=== PATIENT | female | born 1985 | race Caucasian/White ===

== ENCOUNTER 2016-07-12 14:48 | Emergency (ER) | payer OTHER ==
[~2016-07-12] VITALS: Ht 152.4 cm; Wt 66.0 kg
[2016-07-12 14:53] VITALS: Ht 152.4 cm; Wt 66.0 kg
[2016-07-12] MEDS ORDERED: KETOROLAC 30 MG INJ IM STA (16:16)
[2016-07-12] MEDS ORDERED: OXYCODONE/ACETAMINOPHEN (5/325) TAB PO ONE (16:30)
--- NOTE | 2016-07-12 16:44 | RADRPT ---
PROCEDURE: US Lower extremity Venous. CLINICAL INDICATION: Pain and swelling TECHNIQUE: Multiple sonographic images of the right lower extremity deep venous system was obtaine d utilizing grayscale, color-flow, compressive sonography and doppler imaging with augmentation. Th e images were reviewed on a PACS workstation. COMPARISON: None. FINDINGS: There is normal compressibility and flow within the right common femoral, deep femoral, superficial femoral and popliteal veins. Normal respiratory variation and augmentation is seen. There is normal color flow and compressibility of right posterior tibial and peroneal veins IMPRESSION: No sonographic evidence for right lower extremity deep venous thrombosis. RPTAT: HH .Hood Gonzalez MD, MD Date Time Electronically viewed and signed by .Hood Gonzalez MD, on 07/12/2016 16:44 .W/
--- NOTE | 2016-07-12 17:04 | RADRPT ---
PROCEDURE: Doppler US right lower extremity arteries. CLINICAL INDICATION: Right leg pain. History of right knee injury.. TECHNIQUE: Multiple longitudinal and transverse images of the right lower extremity arteries were obtained with wilhelm scale, pulsed Doppler and color Doppler imaging. COMPARISON: No prior studies are available for comparison. FINDINGS: Location Right CFA69 cm/sec PSFA68 cm/sec MSFA78 cm/sec DSFA66 cm/sec POP47 cm/sec PTA39 cm/sec DPA31 cm/sec There is normal triphasic flow throughout the right lower extremity arterial system. There is no pl aque, stenosis, or occlusion. There is no aneurysm or pseudoaneurysm. IMPRESSION: 1. Normal right lower extremity arterial Doppler. RPTAT: QQ .Faizan Byrd MD, MD Date Time Electronically viewed and signed by .Faizan Byrd MD, MD on 07/12/2016 17:04 .R/
--- NOTE | 2016-07-12 17:20 | RADRPT ---
PROCEDURE: XR Knee. CLINICAL INDICATION: Pain TECHNIQUE: AP, lateral and oblique view of the right knee were obtained. The images reviewed on a PACS workstation. COMPARISON: None. FINDINGS: Three views of the right knee demonstrate a avulsion fracture along the lateral tibial plateau likel y associated with lateral collateral ligament injury. No other fracture identified. There is no si gnificant degenerative change. Trace knee joint effusion is seen. The bones normally mineralized. Soft tissues are unremarkable. IMPRESSION: 1. Small avulsion fracture off the corner of the lateral tibial plateau. 2. No other fractures identified. 3. Trace joint effusion RPTAT: HH .Hood Gonzalez MD, MD Date Time Electronically viewed and signed by .oHod Gonzalez MD, on 07/12/2016 17:19 .W/
[2016-07-12] MEDS ORDERED: IBUP-1542 PO (18:29)
[2016-07-12] MEDS ORDERED: OXYC-279 PO (18:29)
[2016-07-12 18:57] VITALS: BP 125/81; PULSE 81; RESP 20; TEMP 98.2
--- NOTE | 2016-07-12 19:01 | ERD ---
ER Documentation Chief Complaint Date/Time DATE: 07/12/16 TIME: 18:52 Chief Complaint right knee pain/injury HPI 30-year-old woman presents with pain, swelling, redness/discoloration to the right knee after experiencing excruciating pain last night while performing lateral lunge exercises. Patient states she felt and heard a pop and since then cannot ambulate without difficulty. She denies previous knee injury, denies calf or leg swelling, no fevers or chills, no chest pain or shortness of breath , no paresis or paresthesias. ROS All systems reviewed and are negative except as per history of present illness. Medications Home Meds Active Scripts Ibuprofen* (Ibuprofen*) 600 Mg Tablet, 600 MG PO Q8 for PAIN AND/OR INFLAMMATION , #40 TAB Prov:RICO GREY MD 07/12/16 Oxycodone HCl/Acetaminophen (Percocet 5-325 mg Tablet) 1 Each Tablet, 1 EACH PO TID for PAIN LEVEL 6-10, #20 TAB Prov:RICO GREY MD 07/12/16 PMhx/Soc None Medical and Surgical Hx: pt denies Medical Hx History of Surgery: Yes (csect x2) Hx Alcohol Use: No Hx Substance Use: No Hx Tobacco Use: No Smoking Status: Never smoker FmHx Family History: No diabetes Physical Exam Vitals Vital Signs Date Time Temp Pulse Resp B/P Pulse Ox O2 Delivery O2 Flow Rate FiO2 07/12/16 14:53 98.2 132 19 129/91 100 Physical Exam GENERAL: Well-developed, well-nourished, well-hydrated, in pain, looks nontoxic in appearance HEENT: Moist mucous membranes, pink conjunctiva, no cervical spine tenderness or step-off deformities, no goiter, no jaundice or icterus, extraocular movements intact without pain. No submandibular induration, and no pharyngeal erythema NEURO: Alert and oriented 3, cranial nerves II through XII intact bilaterally, pupils equal round reactive to light, no focal deficits or facial asymmetry, sensation intact distally Strength 5/5 in upper and lower extremities bilaterally CARDIAC: Regular rate and rhythm, no murmurs rubs or gallops LUNGS: Clear bilaterally no wheezing crackles or stridor ABDOMEN: Soft nontender, no guarding, no rigidity, no rebound, no psoas sign no obturator sign. Normoactive bowel sounds SKIN: Warm and dry to touch, no abrasions, contusions, or hematomas, no lacerations, no ecchymosis, no target lesions, and without ulcers EXTREMITIES: There is soft tissue tenderness, swelling, ecchymosis to the right knee and lateral upper leg. The calves are bilaterally symmetrical and distal pulses are equal and bilateral. A full Renato test could not be adequately performed due to pain, Edgar test was negative, and right knee complex feels and appears to be unstable with valgus and varus stress maneuvers. PSYCH: Normal affect without agitation or irritability Results 24 hrs Current Medications Medications (Trade) Dose Ordered Sig/Chele Route PRN Reason Start Time Stop Time Status Last Admin Dose Admin Ketorolac Tromethamine (Toradol) 30 mg ONCE STAT IM 07/12/16 16:16 07/12/16 16:19 DC 07/12/16 17:42 Oxycodone/ Acetaminophen (Percocet (5/ 325)) 1 tab ONCE ONCE PO 07/12/16 16:30 07/12/16 16:31 DC 07/12/16 17:41 Procedures/MDM I administered Percocet one tablet by mouth and Toradol 30 g intramuscular injection with good pain control. Arterial color Doppler ultrasound was performed to the right lower extremity, popliteal artery injury was ruled out. Venous Doppler ultrasound was performed the right lower extremity, all veins were compressible, no deep vein thrombosis was noted. X-ray right Knee 3V Interpreted by me: Bones: Proximal, displaced avulsion fracture of the right lateral tibia is noted, no other fracture. Joints: No dislocation Foreign body: None Right lower extremity was placed in a long stirrup and posterior lower extremity splint with the knee in slight flexion and secured with Jac elastic bandage circumferentially.Splint Assessment: Neurovascularly intact post splint placement with good fit. I had a long discussion with the patient regarding her injury, I do suspect further medial and/or lateral collateral ligamentous tear as well as possible meniscal injury. There is high likelihood that she will require surgical intervention although prior to surgery she'll have to follow-up with her PMD and orthopedic source water protection specialist for MR imaging. I gave her the address and phone number to 3 different nearby orthopedic surgeons and referred her to her PMD. We also discussed possible complications to this type of knee injury and debilitating sequela. Differential diagnoses considered, included but not limited to popliteal artery aneurysm, DVT,, septic arthritis, sepsis, stroke, meningitis, encephalitis, pneumonia, appendicitis, cholecystitis, bowel obstruction, pyelonephritis, nephrolithiasis, cystitis, as well as metabolic, hematologic, and electrolyte abnormalities. As well as abscess, cellulitis, fractures, and dislocations. Patient feels much better at this time, and vital signs are normal, symptoms have improved. I did give strict instructions to return to the ED if symptoms continue or worsen, patient will otherwise follow-up with primary care physician. Patient understood instructions and agreed to plan. Departure Diagnosis: Primary Impression: Medial collateral ligament sprain of knee Encounter type: initial encounter Laterality: right Qualified Code: S83.411A - Sprain of medial collateral ligament of right knee, initial encounter Additional Impressions: Tibia fracture Encounter type: initial encounter Tibia location: proximal Fracture type: closed Fracture morphology: other fracture Laterality: right Qualified Code : S82.191A - Other closed fracture of proximal end of right tibia, initial encounter Lateral collateral ligament sprain of knee Encounter type: initial encounter Laterality: right Qualified Code: S83.421A - Sprain of lateral collateral ligament of right knee, initial encounter Condition: Good Patient Instructions: Treating Medial Collateral Ligament (MCL) Problems, Fracture, Lower Extremity, Knee Sprain: Collateral Ligaments Referrals: LAURA OSORIO MD, HERBERT D MD ZEEGEN, ERIK N. MD ZOHRABIAN, DAVID MD Jul 12, 2016 19:01
== END 2016-07-12 18:58 | disposition home or self-care (01) ==
LOC: FTE 14:48
DX: S83.411A Sprain of medial collateral ligament of right knee, initial encounter (principal); S82.191A Other fracture of upper end of right tibia, initial encounter for closed fracture; S83.421A Sprain of lateral collateral ligament of right knee, initial encounter; X50.9XXA Other and unspecified overexertion or strenuous movements or postures, initial encounter; Y92.9 Unspecified place or not applicable
CPT/HCPCS: 29505; 73562; 93926; 93971; 96372; J1885; Z7502; Z7610